=== PATIENT | female | born 1990 | race Caucasian/White ===

== ENCOUNTER → 2018-04-11 10:56 | Outpatient (CLI) | payer OTHER, MEDICAID, SELFPAY ==
[2018-04-11 11:55] LABS: Erythrocyte Sedimentation Rate 9 MM/HR (0-20)
[2018-04-11 12:17] LABS: HEMOLYSIS < 15 (0-50); Iron 44 ug/dL (37-170)
[2018-04-11 12:18] LABS: Pregnancy Test Serum,Qual Negative (Negative)
[2018-04-11 12:22] LABS: Alanine Aminotransferase 22 IU/L (9-52); Albumin 4.5 g/dL (3.5-5.0); Albumin Globulin Ratio 1.4 (1.0-2.8); Alkaline Phosphatase 63 U/L (38-126); Aspartate Aminotransferase 19 IU/L (14-36); Bilirubin Total 0.5 mg/dL (0.2-1.3); Blood Urea Nitrogen 9 mg/dL (7-17); Calcium 9.6 mg/dL (8.4-10.2); Carbon Dioxide 30 mmol/L (22-32); Chloride 100 mmol/L (98-107); Estimated Glomerular Filt Rate > 60.0 mL/min (>60); Globulin 3.3 g/dL (1.7-4.1); Glucose 91 mg/dL (70-100); HEMOLYSIS < 15 (0-50); Potassium 4.4 mmol/L (3.4-5.1); Sodium 141 mmol/L (137-145); Total Protein 7.8 g/dL (6.3-8.2)
[2018-04-11 12:24] LABS: C-Reactive Protein Quant < 0.5 mg/dL (<1.0); Rheumatoid Factor < 8.6 IU/mL (<12.0)
[2018-04-11 12:28] LABS: Percent Iron Saturation 13 % (15-50); Total Iron Binding Capacity 345 ug/mL (265-497); Transferrin 272 mg/dL (206-381)
[2018-04-11 12:49] LABS: Thyroid Stimulating Hormone 1.82 uIU/mL (0.47-4.68)
[2018-04-11 12:55] LABS: Ferritin 14.8 ng/mL (6.27-137)
[2018-04-11 13:02] LABS: HIV 1 and 2 Antibody NEGATIVE (NEGATIVE)
[2018-04-11 13:08] LABS: Vitamin B12 348 pg/mL (239-931)
[2018-04-12 13:56] LABS: Alpha 1 Anti Trypsin 160 mg/dL (83-199); Ceruloplasmin 22 mg/dL (18-53)
[2018-04-12 14:29] LABS: CCP Antibody (IgG) < 16 Units (< 20)
[2018-04-12 17:30] LABS: Hepatitis A Antibody IgM NONREACTIVE; Hepatitis Acute Panel Interp 0.03; Hepatitis B Core Antibody IgM NONREACTIVE; Hepatitis B Surface Antigen NONREACTIVE; Hepatitis C Antibody NONREACTIVE
== END ==
PROVIDERS: PCP Family Medicine; Visit Provider Family Medicine
DX: M25.50 Pain in unspecified joint (principal); R10.9 Unspecified abdominal pain; K76.0 Fatty (change of) liver, not elsewhere classified; R53.83 Other fatigue
CPT/HCPCS: 36415; 80053; 80074; 82103; 82390; 82607; 82728; 83516; 83540; 83550; 84443; 84703; 85651; 86140; 86430; 86703

== ENCOUNTER → 2018-04-17 09:41 | Outpatient (CLI) | payer OTHER, MEDICAID, SELFPAY ==
--- NOTE | 2018-04-17 09:42 | DI.US.S_ITS ---
PROCEDURE: US ABDOMEN COMPLETE INDICATIONS: 27 year-old female with fatty liver history. TECHNIQUE: Real-time scanning was performed of the abdominal and retroperitoneal organs, with image documentation. COMPARISON: [facility], CT, ABDOMEN/PELVIS WITH CONTRAST, 03/31/2011, 10:10. FINDINGS: Liver: Liver is normal in size and homogeneous in echotexture. Gallbladder: No gallstones or biliary sludge. Gallbladder wall thickness is normal. No pericholecystic fluid. Biliary ducts: Intrahepatic bile ducts are non-dilated. Extrahepatic bile duct caliber measures 5 mm. Normal is 6-7 mm or less in diameter, or 10 mm or less post-cholecystectomy. Pancreas: Visualized portions of the pancreas are sonographically normal. Spleen: Spleen is normal in size and homogeneous in echotexture. Kidneys: Kidneys are normal in size and echotexture. Right kidney measures 9.3 cm long; left kidney measures 11.4 cm long. No hydronephrosis or nephrolithiasis. No solid masses. Aorta: Visualized aorta is normal in caliber at less than 3 cm. Iliacs: Proximal common iliac arteries are normal in caliber at less than 2.5 cm. IVC: Intrahepatic inferior vena cava is patent. Miscellaneous: No free abdominal fluid. IMPRESSION: Normal abdominal ultrasound. No current sonographic findings to suggest fatty liver. Dictated by: Brijesh Watson M.D. on 04/17/2018 at 12:19 Approved by: Brijesh Watson M.D. on 04/17/2018 at 12:22
== END ==
PROVIDERS: PCP Family Medicine; Visit Provider Family Medicine
DX: K76.0 Fatty (change of) liver, not elsewhere classified (principal); R10.9 Unspecified abdominal pain
CPT/HCPCS: 76700

== ENCOUNTER → 2019-04-24 10:46 | Outpatient (CLI) | payer OTHER, MEDICAID, SELFPAY ==
--- NOTE | 2019-04-24 | DI.US.S_ITS ---
PROCEDURE: US PELVIC COMPLETE INDICATIONS: PELVIC PAIN TECHNIQUE: Real-time scanning was performed of the pelvic organs, with image documentation. Additional endovaginal scanning was necessary due to incomplete visualization of the adnexal and endometrial structures by transabdominal scanning. COMPARISON: [facility], [place], PELVIC COMPLETE, 04/29/2017, 14:02. FINDINGS: Transabdominal scanning: Limited scanning through the kidneys shows no hydronephrosis. No pathologic free abdominal or pelvic fluid. Endovaginal scanning: Uterus: Uterus is normal in size at the 8.5 x 3.3 x 4.5 cm. The endometrium measures 10 mm in combined thickness. However, there are several echogenic foci identified within the endometrium with the largest measuring approximately 6 mm. No evidence for vascular flow to these echogenic foci. No posterior shadowing. Ovaries: Bilateral ovaries are unremarkable. Right ovary measures 3.7 x 2.2 x 2.8 cm. There is a simple cyst in the right ovary. Left ovary measures 3.2 x 1.3 x 2.5 cm. IMPRESSION: A few scattered subcentimeter echogenic nodular foci within the visualized endometrium. These are nonspecific and may represent small endometrial polyps versus focal adenomyosis. Overall, the endometrium appears unremarkable. The uterus is normal in sonographic appearance. Normal bilateral ovaries. Findings may not correlate with symptoms of pelvic pain but may explain abnormal bleeding if present. Consider short interval followup imaging in 3-6 months to document stability versus resolution of findings. Dictated by: Josh Washburn M.D. on 04/24/2019 at 11:54 Approved by: Josh Washburn M.D. on 04/24/2019 at 12:03
== END ==
PROVIDERS: Visit Provider Nurse Practitioner Obstetrics & Gynecology
DX: R10.2 Pelvic and perineal pain (principal); N83.291 Other ovarian cyst, right side
CPT/HCPCS: 76830; 76856

== ENCOUNTER → 2022-05-13 15:05 | Outpatient (CLI) | payer OTHER, MEDICAID, SELFPAY ==
[2022-05-13 16:17] LABS: COVID19 -Nasal RAPID Negative (Negative)
== END ==
PROVIDERS: PCP Family Medicine; Visit Provider Obstetrics & Gynecology
DX: Z01.812 Encounter for preprocedural laboratory examination (principal); Z20.822 Contact with and (suspected) exposure to COVID-19
CPT/HCPCS: 87635

== ENCOUNTER 2022-05-14 08:41 | Day surgery (SDC) | payer OTHER, MEDICAID, SELFPAY ==
[2022-05-12 10:45] VITALS: BMI 23.0
[2022-05-14] VITALS (7 sets, daily range): BP systolic 93–128; BP diastolic 46–80; PULSE 71–80; RESP 15–17; TEMP 36.3–37.1; O2SAT 99–100; BMI 23.0
--- NOTE | 2022-05-14 | PATH_ITS ---
[facility] Accession Number: [id number] No. of containers..04 Tissue . 01 Material submitted: . PART A: cervix - ANTERIOR LIP OF CERVIX PART B: cervix - POSTERIOR LIP OF CERVIX PART C: endocervix - ENDOCERVIX PART D: endocervix - ENDOCERVICAL CURETTINGS . 01 Clinical history: . [facility] – [place]AP[place] THE CAUSE OF DISEASES CLASSIFIED PERSONAL OF OTHER INFECTIOUS AND PARASITIC . 01 Diagnosis: A. Anterior Lip of Cervix, LEEP Biopsy: Focal involvement by low-grade squamous intraepithelial lesion / CORTNEY 1. Possible changes of previous instrumentation are focally present. Intact tissue margins are negative for dysplasia or malignancy; electrocautery artifact is focally obscuring. Negative for high grade dysplasia or malignancy. . B. Posterior Lip of Cervix, LEEP Biopsy: Involvement by low-grade squamous intraepithelial lesion / CORTNEY 1. Low-grade squamous intraepithelial lesion / CORTNEY-1 is present at the blue-inked margin, presumed ectocervical. Changes suggestive of previous instrumentation are present. Negative for high-grade dysplasia or invasive tumor. Detached fragments of inflamed granulation tissue and ulcer are present. . C. Endocervix, LEEP Biopsy: Endocervix, negative for glandular dysplasia or malignancy. Apparent, intact margins are negative for dysplasia. No transformation zone is identified. No high-grade dysplasia or invasive tumor identified. . D. Endocervical Curettings: Polypoid fragments of lower uterine segment; negative for glandular hyperplasia, cytologic atypia, or malignancy. The lower uterine segment tissue fragments demonstrate prominent vessels, suggestive of polyp, if clinical and imaging findings are concordant. Strips of glandular epithelium, possibly from endocervix, negative for glandular dysplasia or malignancy. Please see comment. [facility] 05/19/2022 1423 Local . 01 Comment: Part D: Due to the scant nature of endocervical tissue in this biopsy, it may not be entirely customer assistance representative of this patient's endocervix; additional sampling could be considered, if clinically appropriate. . There is a minor disagreement with Pap smear [id number]. . 01 Electronically signed: . Geno Grimes MD, Pathologist NPI- [id number] . 01 Gross description: . A. Received in formalin, labeled with the patient's name and designated 1. Interior lip of cervix, is a 1.4 x 1.0 cm portion of cervix, excised to a depth up to 0.7 cm. The presumed endocervical margin is inked yellow. The remaining ectocervical margin is inked blue. The tissue is radially sectioned and entirely submitted in cassettes A1 A2. B. Received in formalin, labeled with the patient's name and designated 2. Posterior lip of cervix, is a 1.8 x 1.0 cm, unoriented portion of cervix, excised to a depth up to 0.7 cm. The presumed endocervical margin is inked yellow, and the remaining ectocervical margin is inked blue. The ectocervical mucosa is pink-hall and focally disrupted with no discrete mass identified. The tissue is radially sectioned and entirely submitted in cassettes B1-B2. C. Received in formalin, labeled with the patient's name and designated 3. Endocervix, is a 1.2 x 1.1 cm conical excision excised to a depth up to 1.0 cm. The endocervical margin is inked yellow, and the remaining ectocervical margin is inked blue. No discrete lesions are grossly identified. The tissue is radially sectioned and entirely submitted in cassettes C1-C3. D. Received in formalin, labeled with the patient's name and designated 4. Endocervical curettings, is a 1.0 x 0.7 x 0.2 cm aggregate of mucohemorrhagic material, entirely submitted in cassette D1. (NAVDEEP:[id number]) /[facility] 05/15/2022 1441 Local . 01 Pathologist provided ICD-10: B97.7, N87.0, Z86.19 . 01 CPT . 960338, 750464, 331465, 554691 Specimen Comment: A courtesy copy of this report has been sent to [phone] Performed at: 01 [facility] [address], [place], [place] [id number] MD Sukumar Rosario MD Phone: [phone]
--- NOTE | 2022-05-14 08:57 | PM.PREOP ---
Pre-operative Note COVID-19 COVID-19 status: Negative Result date/Date tested (Pos, Neg/Pending): 05/13/22 Criteria for continued procedure: Non-surgical alternatives not available or appropriate per current SOC Interval Note History & Physical reviewed/Exam performed by Physician: Yes Changes to H&P: No
[2022-05-14] MEDS: LACTATED RINGERS 1,000 ML 100 ML IV (09:16)
--- NOTE | 2022-05-14 09:27 | SUR.OPER ---
Lithotomy on padded OR bed, head on pillow, arms secured on padded arm boards at <90 degrees abduction. Legs secured in padded yellow fins stirrups.
--- NOTE | 2022-05-14 09:43 | P.OP_ITS ---
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 Normal vulva and vagina. Specimen(s): other (anterior lip of cervix, posterior lip of cervix, endocervix, endocervical curettings) Estimated Blood Loss (mL): 5 Procedure in detail: EBL: 5ccs IVF: 500ccs LR After informed consent was obtained, the patient was taken to the operating room where IV sedation was obtained. She was placed in the dorsal lithotomy position and draped in the usual fashion, having voided just before transfer. A coated speculum was placed in the vagina and excellen visualization of the cervix was achieved. The cervix was coated with lugols and decreased uptake was noted at 6- 7 o clock. Additionally, moderate bleeding was precipitated from 2-3mm within the cervical os on the posterior aspect, similar to findings in clinic. The cervix was injected with 4ccs of 1% lidocaine with epinephrine, and the 1x 1.2cm LEEP loop used to remove the anterior and posterior lips of the cervix. A small loop was used to remove the endocervix, and an endocervical curettage was performed. Rollerball cautery was used to achieve hemostasis, and Monsels applied. The speculum was removed from the vagina. The patient tolerated the procedure well and was taken to the PACU in stable condition. Complications: none Post-operative Condition: stable Disposition: PACU Plan for aftercare: Routine postop care.
[2022-05-14] MEDS: LIDOCAINE 1% W/EPI 20 ML INJ (09:47)
[2022-05-14] MEDS: POTASSIUM IODIDE/IODINE 473 ML SOLUTION TOP (09:47)
[2022-05-14] MEDS: FERRIC SUBSULFATE 8 GM SOLUTION 8 ML TOP (09:47)
--- NOTE | 2022-05-14 10:15 | SUR.PHASEII ---
Pt ready to go, dressed, left when ready and left in stable condition.
== END 2022-05-14 10:27 | disposition home or self-care (01) ==
PROVIDERS: PCP Family Medicine; Referring Provider Obstetrics & Gynecology; Visit Provider Obstetrics & Gynecology
PROC: 0UBC7ZZ Excision of Cervix, Via Natural or Artificial Opening (ICD-10-PCS; CPT 57522; principal; 2022-05-14 09:45)
DX: N87.0 Mild cervical dysplasia (principal); N93.0 Postcoital and contact bleeding; R87.810 Cervical high risk human papillomavirus (HPV) DNA test positive
CPT/HCPCS: 57522; 81025; 82962; A9270; J1100; J1885; J2250; J2405; J2704; J3010

== ENCOUNTER → 2023-01-17 06:50 | Outpatient (CLI) | payer OTHER, MEDICAID, SELFPAY ==
--- NOTE | 2023-01-17 06:51 | DI.US.S_ITS ---
PROCEDURE: US PELVIC COMPLETE INDICATIONS: LEFT PELVIC PAIN TECHNIQUE: Real-time scanning was performed of the pelvic organs, with image documentation. Additional endovaginal scanning was necessary due to incomplete visualization of the adnexal and endometrial structures by transabdominal scanning. COMPARISON: [facility], , US PELVIC COMPLETE, 04/24/2019, 11:10. FINDINGS: Uterus: Uterus is anteverted and normal in size at 7.7 by 4.0 x 4.7 cm. The myometrium is slightly heterogeneous with of small rounded hypoechoic focus along the posterior fundal serosal surface measuring 0.8 cm. The endometrium measures six mm combined thickness. Within the endometrial stripe is a focal oval hyperechoic finding distorting the mucosal surface and measuring 0.7 x 0.3 x 0.8 cm. There is questionable vascularity adjacent to the mass, potentially a vascular stalk. This was seen previously and is minimally larger in size. Ovaries: The right ovary measures 2.8 x 3.3 x 2.3 cm, with a calculated ovarian volume of 10.9 cc. The left ovary measures 3.4 x 1.8 x 2.6 cm, with a calculated ovarian volume of 8.0 cc. The ovaries have a normal sonographic appearance. Normal vascularity in the left ovary. No adnexal masses are seen. Other: No pathologic free abdominal or pelvic fluid. IMPRESSION: 1. There is been minimal size increase of a chronic oval hyperechoic endometrial mass most consistent with a polyp. 2. Normal ovaries. 3. Possible small subserosal posterior fundal uterine fibroid. We strive to produce accurate, complete, and clear reports of imaging services. To assist us in improving patient care, this report was composed using standard report templates and voice recognition software. Therefore, it may contain abnormal punctuation, insertions and/or omissions. Occasional wrong-word or sound-alike substitutions may occur. Though we review the report and make efforts to correct it, we do recommend that the report be read carefully in proper context to recognize any text inaccuracies. Dictated by: Kath Murphy M.D. on 01/17/2023 at 11:25 Approved by: Kath Murphy M.D. on 01/17/2023 at 11:31
== END ==
PROVIDERS: PCP Family Medicine; Referring Provider Physician Assistant Medical; Visit Provider Physician Assistant Medical
DX: N85.9 Noninflammatory disorder of uterus, unspecified (principal); R10.2 Pelvic and perineal pain
CPT/HCPCS: 76830; 76856; 93976

== ENCOUNTER → 2024-08-23 08:45 | Outpatient (CLI) | payer BC, SELFPAY ==
[2024-08-23 10:32] LABS: Add Manual Diff / Slide Review NO; Basophils Absolute Auto 0 /uL (0-100); Basophils Percent Auto 0.5 % (0-2); Eosinophils Absolute Auto 100 /uL (0-450); Eosinophils Percent Auto 1.4 % (2-4); Hematocrit 35.3 % (36-46); Hemoglobin 11.9 g/dL (12.0-16.0); Lymphocytes Absolute Auto 2400 /uL (1100-4500); Mean Corpuscular HGB Conc 33.7 % (30-36); Mean Corpuscular Hemoglobin 28.5 PG (26-34); Mean Corpuscular Volume 84.6 fL (80-100); Monocytes Absolute Auto 500 /uL (0-900); Monocytes Percent Auto 10.1 % (3-14); Neutrophils Absolute Auto 2200 /uL (1500-7000); Platelet Count 197 X10^3/uL (150-400); Red Blood Cell Count 4.18 X10^6/uL (4.0-5.2); Red Cell Distribution Width 13.2 % (11.6-14.8); White Blood Cell Count 5.2 X10^3/uL (4.5-11.0)
[2024-08-23 11:01] LABS: Alanine Aminotransferase 11 IU/L (<35); Albumin Globulin Ratio 1.3 (1.0-2.8); Alkaline Phosphatase 52 U/L (38-126); Aspartate Aminotransferase 21 IU/L (14-36); BUN Creatinine Ratio 16.9 (6-22); Bilirubin Total 0.7 mg/dL (0.2-1.3); Blood Urea Nitrogen 10 mg/dL (7-17); Calcium 9.2 mg/dL (8.4-10.2); Carbon Dioxide 27 mmol/L (22-32); Chloride 104 mmol/L (98-107); Cholesterol 165 mg/dL (140-199); Estimated Glomerular Filt Rate > 60 mL/min (>60); Globulin 3.1 g/dL (1.7-4.1); Glucose 83 mg/dL (70-100); HDL Cholesterol 53 mg/dL (40-60); HEMOLYSIS < 15 (0-50); LDL Cholesterol Calculated 101 mg/dL (<100); Potassium 4.4 mmol/L (3.4-5.1); Sodium 136 mmol/L (137-145); Total Protein 7.1 g/dL (6.3-8.2); Triglycerides 56 mg/dL (35-150)
== END ==
PROVIDERS: PCP Family Medicine; Referring Provider Family Medicine; Visit Provider Family Medicine
DX: Z00.00 Encounter for general adult medical examination without abnormal findings (principal); I73.00 Raynaud's syndrome without gangrene; B97.7 Papillomavirus as the cause of diseases classified elsewhere; Z83.3 Family history of diabetes mellitus; R87.619 Unspecified abnormal cytological findings in specimens from cervix uteri; D48.5 Neoplasm of uncertain behavior of skin
CPT/HCPCS: 36415; 80053; 80061; 84443; 85025